=== PATIENT | female | born 1975 | race African-American/Black ===

== ENCOUNTER → 2017-05-18 | Outpatient (REF) ==
--- NOTE | 2017-05-18 12:33 | REP ---
TWO-VIEW CHEST: REASON: Employee health screening. COMPARISON: No priors. FINDINGS: The superior mediastinal structures are midline. The cardiac silhouette is unremarkable in size, shape, and position. The diaphragmatic surfaces of the lungs are regular, and the costophrenic angles are clear. The pulmonary messina are clear. The imaged osseous structures are intact. IMPRESSION: There is no acute cardiopulmonary disease. Signed by Mikey Davis DO 05/18/2017 01:43 P
== END ==
LOC: M LAB 11:40
PROVIDERS: ATTEND Nurse Practitioner Adult Health
DX: Z02.9 Encounter for administrative examinations, unspecified (principal)

== ENCOUNTER → 2017-05-31 | Outpatient (REF) | LOC: M LAB 10:20 | PROVIDERS: ATTEND Nurse Practitioner Adult Health | DX: Z02.1 Encounter for pre-employment examination (principal) ==

== ENCOUNTER → 2018-12-25 | Outpatient (CLI) | payer OTHER ==
--- NOTE | 2018-12-25 16:01 | REP ---
Clinical: Bilateral knee pain Technique: AP, lateral, bilateral oblique and sunrise views right and left knee. Findings: The osseous structures and joint spaces are intact and normal. There is no evidence for acute fracture or dislocation. No joint effusion is appreciated. Surrounding soft tissues are unremarkable. No subcutaneous emphysema or radiodense foreign body. Impression: Age-appropriate examination. No acute fracture or dislocation. Electronically Signed by Paul Saldivar MD 12/25/2018 03:52 P
== END ==
LOC: M LRY 15:27
PROVIDERS: ATTEND Physician Assistant
DX: M25.561 Pain in right knee (principal); M25.562 Pain in left knee